=== PATIENT | female | born 1970 | race Caucasian/White ===

== ENCOUNTER → 2016-05-31 | Outpatient (CLI) | payer OTHER ==
[2015-10-20 10:15] VITALS: BP 114/55
[~2016-05-31] MED LIST: ALPR2TAB2 PO; CLIN-44 PO; FENT1PAT92 TD; GABA-586 PO; LACT1CAP6 PO; METH10TA2 PO; METO100T11 PO; OXYC-244 PO; PROVENTIL HFA6.7 GM IH; SPIR25TA3 PO; TOPI25CA6 PO
--- NOTE | 2016-05-31 10:14 | KCIC ---
PROCEDURE Carotid Doppler ultrasound HISTORY Paroxysmal ventricular tachycardia. COMPARISON None TECHNIQUE Grayscale, color Doppler and duplex analysis. FINDINGS All measurements are obtained in accordance with NASCET criteria. Velocity measurements are in cm/sec. Right side No large plaque is identified on the right. Right vertebral artery is patent with normal direction of flow. Right ICA peak systolic velocity is 106. Right ICA end-diastolic velocity is 42. ICA/CCA ratio is 1.2. Left side No large plaque identified. Left vertebral artery is patent with normal directional flow. Left ICA peak systolic velocity is 98. Left ICA end-diastolic velocity is 40. ICA/CCA ratio is 1.26. As per the technologist, the patient described a left supraclavicular lump. The technologist scanned in this area but discovered no abnormality. IMPRESSION Mild elevation of the right and left internal carotid artery end-diastolic velocities, can be compatible with moderate stenosis. However, peak systolic velocity criteria and ICA/CCA ratio criteria are not consistent with hemodynamically significant stenosis. Electronically signed by: Antonino Saeed MD (May 31, 2016 10:12:31)
== END | disposition home or self-care (01) ==
LOC: KCIC US 08:05
PROVIDERS: ATTEND Family Medicine
DX: I65.23 Occlusion and stenosis of bilateral carotid arteries (principal)
CPT/HCPCS: 93880

== ENCOUNTER → 2016-07-27 | Outpatient (CLI) | payer OTHER ==
[2015-10-20 10:15] VITALS: BP 114/55
[~2016-07-27] MED LIST changes: +IOHEXOL 240 MG/ML 50ML VIAL. PO ONE; +IOHEXOL 300 MG/ML 100ML VIAL. IV ONE
--- NOTE | 2016-07-27 11:58 | KCIC ---
PQRS Compliance Statement: One or more of the following individualized dose reduction techniques were utilized for this examination: 1. Automated exposure control 2. Adjustment of the mA and/or kV according to patient size 3. Use of iterative reconstruction technique CT ABD PELV W/ORAL IV CONTRAST Clinical Indication: Weight loss, left supraclavicular mass. Comparison: None. TECHNIQUE: Helical CT imaging of the abdomen and pelvis are performed after oral contrast and 67 cc Omnipaque 300 IV contrast. Findings: Minimal dependent atelectasis in the bilateral lower lobes. Cardiac size normal. Cholecystectomy. The extrahepatic duct is dilated but tapers distally. No intrahepatic duct dilation. The liver, spleen, pancreas, adrenal glands, abdominal aorta, and kidneys are normal. Stomach unremarkable. No dilated small bowel. There is scattered stool throughout the colon. Appendix appears to be surgically absent. No abdominal adenopathy or free fluid. Retroverted uterus. Urinary bladder is normal. Ovaries not well evaluated. No pelvic free fluid. Degenerative spondylosis of L4/L5. There is induration of the inferior most left gluteal medial subcutaneous fat. A few tiny calcifications are seen in the induration. Suggest correlation with physical exam. IMPRESSION: 1. No acute abdominal or pelvic abnormality. 2. No adenopathy. 3. Extrahepatic duct is dilated but tapers distally. Finding may be due to postcholecystectomy state. Suggest correlation with laboratory values. Electronically signed by: Wilmar Rivas MD (07/27/2016 11:55 AM)
--- NOTE | 2016-07-27 12:22 | KCIC ---
Limited ultrasound soft tissue neck 07/27/2016. No comparison available. CLINICAL INDICATION: Palpable mass clavicular region. FINDINGS: Sonographic imaging performed over the area of palpable abnormality at the left supraclavicular region. There is no evidence of underlying soft tissue mass or fluid collection. The palpable abnormality may correlate with a normal-appearing left subclavian artery. IMPRESSION: No sonographic abnormality in the region of palpable abnormality left neck. Electronically signed by: Antonino Badillo MD (07/27/2016 12:18 PM)
== END | disposition home or self-care (01) ==
LOC: KCIC CT 10:32
PROVIDERS: ATTEND Family Medicine
DX: R63.4 Abnormal weight loss (principal); J98.11 Atelectasis; M47.896 Other spondylosis, lumbar region
CPT/HCPCS: 74177; 76536; Q9967

== ENCOUNTER → 2016-08-22 | Outpatient (CLI) | payer OTHER ==
[2015-10-20 10:15] VITALS: BP 114/55
[~2016-08-22] MED LIST changes: -CLIN-44 PO; +CLIN150C14 PO; +CONTRAST GIVEN MC PRN; -IOHEXOL 240 MG/ML 50ML VIAL. PO ONE; -OXYC-244 PO; +OXYC-327 PO
--- NOTE | 2016-08-22 13:33 | KCIC ---
Examination: CT angiography neck HISTORY: History of pulsatile mass in the left supraclavicular region COMPARISON: None available TECHNIQUE: Axial CT angiography images of the neck was performed with IV contrast. Coronal and sagittal 3-D reformats are performed. Volumetric 3-D reformats were performed for better evaluation. PQRS Compliance Statement - Stenosis calculations for CT, MR and conventional angiography are based upon measurement of the distal ICA diameter in accordance with the NASCET methodology. Stenosis calculations for carotid ultrasound studies are derived from validated velocity criteria which are known to correlate with the NASCET methodology. Exposure: One or more of the following individualized dose reduction techniques were utilized for this examination: 1. Automated exposure control 2. Adjustment of the mA and/or kV according to patient size 3. Use of iterative reconstruction technique Findings: Findings: The origin of the great vessels from the arch of the aorta are not included. Common carotid arteries: Normal Internal carotid arteries: Normal Vertebrobasilar arteries: Normal There is mild reversal of the normal cervical lordosis. The vertebral bodies are otherwise aligned. There is no loss of vertebral body stature. There is no prevertebral soft tissue swelling. Evaluation of the central canal is limited without intrathecal contrast. Minimal emphysematous changes identified in the apical lungs. Impression: 1. No definite evidence of mass identified in the left supraclavicular region. 2. No evidence of vascular occlusion or stenosis is identified. Electronically signed by: Khanh Mcpherson MD (08/22/2016 1:29 PM)
== END | disposition home or self-care (01) ==
LOC: KCIC CT 09:27
PROVIDERS: ATTEND Family Medicine
DX: R22.1 Localized swelling, mass and lump, neck (principal); J44.9 Chronic obstructive pulmonary disease, unspecified
CPT/HCPCS: 70498; Q9967

== ENCOUNTER → 2017-07-17 | Outpatient (CLI) | payer OTHER | END | disposition home or self-care (01) | LOC: KCIC MRI 10:32 | DX: S83.241A Other tear of medial meniscus, current injury, right knee, initial encounter (principal); M17.11 Unilateral primary osteoarthritis, right knee; M94.261 Chondromalacia, right knee; M25.461 Effusion, right knee; X58.XXXA Exposure to other specified factors, initial encounter; Y93.89 Activity, other specified; Y92.89 Other specified places as the place of occurrence of the external cause; Y99.8 Other external cause status | CPT/HCPCS: 73721 ==